=== PATIENT | male | born 1980 | race Caucasian/White ===

== ENCOUNTER 2021-01-22 10:00 | Emergency (ER) | payer BC, SELFPAY ==
--- NOTE | 2021-01-22 10:17 | CT_ITS ---
PROCEDURE: CT CHEST WO CON CLINICAL INDICATION: concern for rib fractures, pneumothorax Right-sided chest pain, shortness of air after injury COMPARISON: No exams were available for comparison TECHNIQUE: Axial images obtained with sagittal and coronal reformats. All CT scans at the facility use one or more dose reduction, viz: automated exposure control, ma/kV adjustment per patient size (including targeted exams where dose is matched to indication, i.e. head), or iterative reconstruction technique. FINDINGS: There is scattered small axillary lymph nodes on the left. No mediastinal or hilar mass or adenopathy. No mediastinal hematoma. Small fissural nodule is present in the right minor fissure at 6 mm. There is a tiny right-sided pneumothorax anteriorly along the lower hemithorax and laterally at the mid thoracic region. No mediastinal shift. No effusion evident. There are mildly displaced fractures involving the right 5th and 6th ribs laterally. There is some soft minimal pleural thickening at the site of the rib fractures. Soft tissue thickening present along the right lateral chest wall inferior to the level the fractures suggesting hematoma. Bone plate is present along the right clavicle Upper abdominal images are remarkable for colonic diverticulosis of the splenic flexure.. IMPRESSION: Mildly displaced right 5th and 6th rib fractures laterally with tiny right-sided pneumothorax. Dictated by: Joseph Bo MD 01/22/2021 10:59 Joseph Bo MD in [place] 01/22/2021 10:59
[2021-01-22 10:27] VITALS: BP 115/98; PULSE 54; RESP 20; TEMP 36.6; O2SAT 99; BMI 25.8
[2021-01-22 10:30] VITALS: BP 121/83; PULSE 56; O2SAT 96
--- NOTE | 2021-01-22 10:33 | [facility].EDCP ---
ED Disposition Clinical Impression: Chest pain, Ribs, multiple fractures, Fracture of rib Disposition: Xfer Short-Term Hosp Condition on Discharge: Good Referrals: Provider,Referral, [Primary Care Provider] - Forms: Transfer Record - ED Time of Disposition: 12:00 - Critical Care Critical Care Time: No Attestation: On , the high probability of a clinically significant, sudden or life threatening deterioration of the following system(s) required my full and direct attention, intervention and personal management. The time I documented below is in addition to time spent performing reported procedures but includes the following listed in this critical care notation. Medical Decision Making - Syd Inquiry Pt receiving controlled substance: No Vital Signs: 01/22/21 10:27 01/22/21 10:30 01/22/21 11:00 Temperature 97.8 F Temperature Source Oral Pulse Rate 56 L 50 L Pulse Rate [Right Radial] 54 L Respiratory Rate 20 Blood Pressure 121/83 106/71 L Blood Pressure [Left Arm] 115/98 H Blood Pressure Mean 88 82 Blood Pressure Mean [Left Arm] 103 Blood Pressure Source Blood Pressure Source [Left Arm] Automatic Cuff Blood Pressure Position Blood Pressure Position [Left Arm] Supine 02 Sat by Pulse Oximetry 99 96 97 Oxygen Delivery Method Room Air 01/22/21 12:32 Temperature 98.3 F Temperature Source Oral Pulse Rate 72 Pulse Rate [Right Radial] Respiratory Rate 16 Blood Pressure 111/75 Blood Pressure [Left Arm] Blood Pressure Mean Blood Pressure Mean [Left Arm] Blood Pressure Source Automatic Cuff Blood Pressure Source [Left Arm] Blood Pressure Position Sitting Blood Pressure Position [Left Arm] 02 Sat by Pulse Oximetry Oxygen Delivery Method Room Air - Lab Data Lab Results 01/22/21 10:22: WBC 8.7, RBC 4.68, Hgb 15.8, Hct 46.0, MCV 98.2 H, MCH 33.7 H, MCHC 34.3, RDW 13.1, Plt Count 310, MPV 7.9, Neut % (Auto) 50.2, Lymph % (Auto) 38.3, Ralls % (Auto) 5.1, Eos % (Auto) 5.2, Baso % (Auto) 1.2, Neut # (Auto) 4.4, Lymph # (Auto) 3.3, Ralls # (Auto) 0.4, Eos # (Auto) 0.5 H, Baso # (Auto) 0.1 01/22/21 10:22: Sodium 138, Potassium 3.4 L, Chloride 102, Carbon Dioxide 23, Anion Gap 16.4 H, BUN 10, Creatinine 0.80, Estimated Creat Clear 141, Estimated GFR 108, Est GFR ( Amer) 131, Glucose 148 H, Calcium 8.9, Total Bilirubin 0.5, AST 36, ALT 19, Alkaline Phosphatase 59, Troponin I < 0.01, Total Protein 7.2, Albumin 4.5, Globulin 2.7, Albumin/Globulin Ratio 1.7 Result diagrams: 01/22/21 10:22 01/22/21 10:22 Orders (Tests/Meds): ED MEDICATIONS Discontinued Medications Generic Name Dose Route Start Last Admin Trade Name Freq PRN Reason Stop Dose Admin Lactated Ringer's 1,000 mls @ 999 mls/hr 01/22/21 10:30 01/22/21 10:37 Lactated Ringer's 1000 Ml Bag IV 01/22/21 11:30 999 mls/hr .Q1H1M BIANCA Administration Morphine Sulfate 2 mg 01/22/21 10:19 01/22/21 10:37 Morphine 2mg/Ml Syringe IV 01/22/21 10:20 2 mg ONCE ONE Administration - CT Data CT Scan: Chest Time Received: 11:[address] Reviewed: Yes: I have reviewed the patient's CT results Findings Narrative: Rib 5-6 fractured w/ tiny (R) pneumothorax Medical Decision Narrative: Mr. Rodgers 40-year-old male with no significant past medical history who presents to the emergency department for chest pain after blunt trauma. Denies hitting head, -LOC. Isolated chest pain. Patient is hemodynamically stable on arrival. Physical exam remarkable for well-appearing male complaining of difficulty breathing and right-sided chest pain. Patient has equal breath sounds bilaterally. No accessory muscle use. Differentials considered not limited to include; blunt cardiac trauma, pneumothorax, rib fractures, pulmonary contusions. CT chest without contrast is obtained which shows evidence of 5 and 6 rib fractures with a tiny pneumothorax. Basic labs, ECG, Trop are non actionable. Surgical team at [facility]
[2021-01-22 10:35] LABS: Basophils # 0.1 K/mm3 (0-0.2); Basophils % 1.2 % (0.1-2.0); Eosinophils # 0.5 K/mm3 (0.0-0.4); Eosinophils % 5.2 % (0.1-12.0); Hemoglobin 15.8 g/dL (14.1-18.0); Lymphocytes # 3.3 K/mm3 (0.7-4.5); Lymphocytes % 38.3 % (10-50); Mean Corpuscular HGB Conc 34.3 g/dL (31.8-35.4); Mean Corpuscular Hemoglobin 33.7 pg (27.0-31.2); Mean Corpuscular Volume 98.2 fl (80-94); Mean Platelet Volume 7.9 fl (7.4-10.4); Monocytes # 0.4 K/mm3 (0.1-1.0); Monocytes % 5.1 % (1.7-9.3); Neutrophils # 4.4 K/mm3 (1.8-7.8); Neutrophils % 50.2 % (37.0-80.0); Platelet Count 310 K/mm3 (142-424); Red Blood Count 4.68 M/mm3 (4.60-6.20); Red Cell Distribution Width 13.1 % (11.5-17.5); White Blood Count 8.7 K/mm3 (4.8-10.8)
--- NOTE | 2021-01-22 10:39 | PC.NURSE ---
Called rad to get chest xray
[2021-01-22 10:43] LABS: Chloride 102 mmol/L (98-107); Potassium 3.4 mmoL/L (3.5-5.1); Sodium 138 mmol/L (136-145)
[2021-01-22 10:45] LABS: Alanine Aminotransferase 19 U/L (12-78); Alkaline Phosphatase 59 U/L (38-126); Anion Gap 16.4 mEq/L (5-15); Aspartate Amino Transferase 36 U/L (17-59); Bilirubin,Total 0.5 mg/dl (0.2-1.3); Blood Urea Nitrogen 10 mg/dl (9-20); Carbon Dioxide 23 mmol/L (22.0-30.0); Creatinine Clearance Estimated 141 mL/min (50-200); Estimated Glomerular Filt Rate 108 ml/min (>60); GFR (African American) 131 ML/MIN (>60)
[2021-01-22 10:46] LABS: Albumin Level 4.5 g/dl (3.5-5.0); Albumin/Globulin Ratio 1.7 (1.1-1.8); Calcium 8.9 mg/dl (8.4-10.2); Globulin 2.7 g/dL (1.3-3.2); Glucose 148 mg/dl (74-100); Total Protein,Serum 7.2 g/dl (6.3-8.2)
[2021-01-22 11:00] VITALS: BP 106/71; PULSE 50; O2SAT 97
[2021-01-22 11:00] LABS: Troponin I < 0.01 ng/ml (0.00-0.034)
--- NOTE | 2021-01-22 11:30 | PC.NURSE ---
paged surgeon client relations associate
--- NOTE | 2021-01-22 11:45 | PC.NURSE ---
Dr Mccarthy on with Dr Galeano
--- NOTE | 2021-01-22 11:57 | PC.NURSE ---
[facility] called for trauma transfer
[2021-01-22 12:32] VITALS: BP 111/75; PULSE 72; RESP 16; TEMP 36.8; O2SAT 98
--- NOTE | 2021-01-22 12:32 | PC.NURSE ---
[facility] transporting pt to [place]
== END 2021-01-22 12:35 | disposition short-term general hospital (02) ==
PROVIDERS: Emergency Provider Student in an Organized Health Care Education/Training Program
DX: S22.49XA Multiple fractures of ribs, unspecified side, initial encounter for closed fracture (principal); W50.0XXA Accidental hit or strike by another person, initial encounter; Y93.68 Activity, volleyball (beach) (court); Y92.89 Other specified places as the place of occurrence of the external cause
CPT/HCPCS: 71250; 80053; 84484; 85025; 96365; 96375; 99284